=== PATIENT | female | born 1975 | race Caucasian/White ===

== ENCOUNTER → 2020-12-21 10:43 | Outpatient (BNVA) | payer OTHER, SELFPAY | PROVIDERS: Visit Provider Family Medicine | DX: Z76.89 Persons encountering health services in other specified circumstances (principal); Z13.220 Encounter for screening for lipoid disorders; Z13.6 Encounter for screening for cardiovascular disorders; C44.91 Basal cell carcinoma of skin, unspecified | CPT/HCPCS: 80053; 80061; 84443; 85025 ==

== ENCOUNTER → 2020-12-24 09:58 | Outpatient (BNVA) | payer OTHER, SELFPAY | PROVIDERS: Visit Provider Family Medicine | DX: C44.91 Basal cell carcinoma of skin, unspecified (principal) | CPT/HCPCS: 88304 ==

== ENCOUNTER 2024-10-21 09:55 | Outpatient (RCR) | payer MEDICAID, SELFPAY | END 2024-10-26 23:59 | disposition home or self-care (01) | LOC: SPT 09:55 | PROVIDERS: Visit Provider Nurse Practitioner Women's Health | DX: R10.2 Pelvic and perineal pain (principal); G89.29 Other chronic pain | CPT/HCPCS: 97161 ==

== ENCOUNTER 2024-10-27 05:00 | Outpatient (RCR) | payer MEDICAID, SELFPAY | END 2024-11-25 23:59 | disposition home or self-care (01) | LOC: SPT 05:00 | PROVIDERS: Visit Provider Nurse Practitioner Women's Health | DX: R10.2 Pelvic and perineal pain (principal); G89.29 Other chronic pain | CPT/HCPCS: 97110 ==